=== PATIENT | male | born 1995 | race Caucasian/White ===

== ENCOUNTER 2017-01-06 14:04 | Emergency (ER) | payer OTHER ==
[2017-01-06 14:50] VITALS: BP 137/72
--- NOTE | 2017-01-06 14:52 | EDM.PDOC ---
ED HPI GENERAL MEDICAL PROBLEM - General Chief Complaint: Lower Extremity Injury/Pain Stated Complaint: NAIL IN BOTTOM OF FOOT Time Seen by Provider: 01/06/17 14:48 Source of Information: Reports: Patient, RN Notes Reviewed History Limitations: Reports: No Limitations - History of Present Illness INITIAL COMMENTS - FREE TEXT/NARRATIVE: 21-year-old gentleman presents emergency department today with complaint of nail in his foot he accidentally stepped on this while out in the yard he was wearing tennis shoes he pulled the nail out himself and is unavailable for examination it was located in the heel of the right foot, he had good pain relief after pulling out the nail, tetanus is up within one year - Related Data Allergies Allergy/AdvReac Type Severity Reaction Status Date / Time No Known Allergies Allergy Verified 01/06/17 14:26 Home Meds: Home Meds NK [No Known Home Meds] 01/06/17 [History] Past Medical History - Past Surgical History HEENT Surgical History: Reports: Tonsillectomy GI Surgical History: Reports: Appendectomy Social & Family History - Tobacco Use Smoking Status *Q: Current Every Day Smoker Years of Tobacco use: 1 Packs/Tins Daily: 0.5 Review of Systems - Review of Systems Review Of Systems: See Below Skin: Reports: Wound ED EXAM, GENERAL - Physical Exam Exam: See Below Free Text/Narrative:: Examination the right foot on appreciate any erythema there is no edema he does have a puncture wound in the heel area it is minimally tender to the touch radial pulses 2+ he can ambulate without difficulty Course - Vital Signs Last Recorded V/S: Last Vital Signs Temp 96.5 F 01/06/17 14:31 Pulse 83 01/06/17 14:31 Resp 16 01/06/17 14:31 BP 137/72 01/06/17 14:31 Pulse Ox 98 01/06/17 14:31 Departure - Departure Time of Disposition: 14:51 Disposition: Home, Self-Care 01 Condition: Good Clinical Impression: Plantar foot puncture wound Puncture wound of plantar aspect of right foot Qualifiers: Encounter type: initial encounter Qualified Code(s): S91.331A - Puncture wound without foreign body, right foot, initial encounter - Discharge Information Forms: ED Department Discharge Additional Instructions: Take full course of antibiotics, Please followup with your primary care provider in 3-5 days if not better, please call return to the emergency department with worsening of symptoms. - Assessment/Plan Plan: Assessment Acuity = acute Site and laterality = puncture wound right foot possibly stuck into the bone Etiology = secondary to stepping on a nail Manifestations = none Location of injury = Home Lab values = none Plan Because the potentially this is stuck in the bone, place him on ciprofloxacin 500 mg by mouth twice a day 7 days follow-up primary care in 3-5 days no improvement Patient was in agreement with the plan all questions were answered, they were instructed to return to the emergency department or call for worsening symptoms. This note was dictated using [employer] voice recognition software please call with any questions.
== END 2017-01-06 15:07 | disposition home or self-care (01) ==
LOC: JP.ED 14:04
DX: S91.331A Puncture wound without foreign body, right foot, initial encounter (principal); F17.210 Nicotine dependence, cigarettes, uncomplicated; Z98.890 Other specified postprocedural states; Z90.49 Acquired absence of other specified parts of digestive tract; W18.49XA Other slipping, tripping and stumbling without falling, initial encounter
CPT/HCPCS: 99283